=== PATIENT | male | born 1965 | race Caucasian/White ===

== ENCOUNTER 2023-12-13 14:05 | Outpatient (OUT) | payer OTHER, SELFPAY ==
--- NOTE | 2023-12-12 08:20 | VEINCLINIC_ITS ---
Vital Signs 12/13/23 14:24 Height 6 ft 3 in Weight 190.509 kg BMI 52.5 BP 144/90 H BP Location Right Brachial BP Position Sitting BP Cuff Size Adult BP Source Manual Cuff Respiration 20 Pulse 74 Pulse Source Monitor Pulse Oximetry (%) 99 Oxygen Delivery Method Room Air Comment The patient's blood pressure is elevated. Varicose Veins Patient in this day for comprehensive consult for bilateral painful varicose veins. Developed BLE edema 10 years ago with BLE wounds that develop spontaneous. Evaluated by Dr. Tucker in the past but no history of vein procedures. He had a DVT in the right leg about 10 years ago. 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 He has been wearing compression stockings for greater than 8 years. Patient was discharged from [facility] 2 weeks ago with cellulitis. Easton Self MD personally performed the services described in this documentation, as scribed by Gale Laws RN in my presence and it is both accurate and complete. Gale Self RN, am scribing for, and in the presence of, Dr. Easton Alvarez and in the presence of the patient. thigh: bilateral, knee: bilateral, calf: bilateral, ankle: bilateral and mackenzie: bilateral burning, sharp and tender 4 10 years Worsened in recent months: Yes walking and other (when wounds are present) analgesics, compression stockings and wraps Reports erythema, firmness, fatigue, heaviness, pruritus, limb pain, edema and leg edema History of lower extremity trauma: No Superficial thrombophlebitis: Yes Family history of varicose veins: yes Has patient had previous lower extremity venous surgery: No Patient has previously received the following treatment(s) for lower extremity varicose veins: Reports none Does patient have a history of : not applicable Does patient intend to have future pregnancies: not applicable Has patient had lower extremity venous scan with relux testing: Yes Support hose used: Yes Problems walking or doing physical activity: Yes How does it affect you: unable to walk or stand for long periods of time Do you walk much: Yes Do you stand much: Yes Review of Systems ROS Narrative Easton Self MD personally performed the services described in this documentation, as scribed by Gale Laws RN in my presence and it is both accurate and complete. Gale Self RN, am scribing for, and in the presence of, Dr. Easton Alvarez and in the presence of the patient. Status of ROS 10 or more systems reviewed and unremark able except as noted in history and below Cardiovascular Reports: edema and swelling of feet/ankles Musculoskeletal Reports: extremity pain, extremity swelling, joint pain, joint swelling and muscle weakness Integumentary/Breast Reports: rash, itching, redness, skin pain, skin tenderness, skin swelling, sores and non-healing lesion PFSH PFSH Medical History (Updated 12/13/23 @ 14:41 by Gale Laws, CEE) Pain due to varicose veins of both lower extremities ?I83.813 - Varicose veins of bilateral lower extremities with pain (ICD-10) Metal plate in skull ?Z96.7 - Presence of other bone and tendon implants (ICD-10) Hypercholesteremia ?E78.00 - Pure hypercholesterolemia, unspecified (ICD-10) Hypertension ?I10 - Essential (primary) hypertension (ICD-10) 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 - Other meniscus derangements, unspecified meniscus, unspecified knee (ICD-10) DVT (deep venous thrombosis) ?I82.409 - Acute embolism and thrombosis of unspecified deep veins of unspecified lower extremity (ICD-10) Venous insufficiency ?I87.2 - Venous insufficiency (chronic) (peripheral) (ICD-10) Cellulitis ?L03.90 - Cellulitis, unspecified (ICD-10) Diabetes ?E11.9 - Type 2 diabetes mellitus without complications (ICD-10) Surgical History (Updated 12/13/23 @ 14:41 by Gale Laws RN) H/O partial thyroidectomy ?E89.0 - Postprocedural hypothyroidism (ICD-10) History of meniscectomy of left knee ?Z98.890 - Other specified postprocedural states (ICD-10) Family History (Updated 12/13/23 @ 14:43 by Gale Laws RN) Father Family history of CHF (congestive heart failure) Family history of myocardial infarction Family history of hypertension Mother Pain due to varicose veins of both lower extremities Family history of diabetes mellitus Sister Family history of diabetes mellitus Grandfather Family history of cancer Social History (Updated 12/13/23 @ 14:44 by Gale Laws RN) Within the past year, how often did you have a drink containing alcohol: never Within the past year, how often did you have six or more drinks on one occasion: never Score interpretation: A score less than 4 is consistent with normal alcohol consumption. Smoking status: Never smoker Non-prescribed substance use: denies use Meds Home Medications and Allergies Home Medications ?Medication ?Instructions ?Recorded ?Confirmed ?Type acetaminophen 500 mg tablet 500 mg PO Q6H PRN pain 12/13/23 12/13/23 History (Tylenol Extra Strength) amlodipine 10 mg tablet 10 mg PO DAILY 12/13/23 12/13/23 History atorvastatin 80 mg tablet 80 mg PO DAILY 12/13/23 12/13/23 History canagliflozin 300 mg tablet 300 mg PO DAILY 12/13/23 12/13/23 History (Invokana) dapagliflozin propanediol 10 mg 10 mg PO DAILY 12/13/23 12/13/23 History tablet (Farxiga) glipizide 2.5 mg tablet, extended 2.5 mg PO DAILY 12/13/23 12/13/23 History release 24 hr (Glucotrol XL) glipizide 5 mg tablet 5 mg PO DAILY 12/13/23 12/13/23 History insulin detemir U-100 100 unit/mL 1 unit subcut DAILY 12/13/23 12/13/23 History (3 mL) subcutaneous pen (Levemir FlexPen) insulin lispro 100 unit/mL 1 sliding scale dose subcut 12/13/23 12/13/23 History subcutaneous pen (Humalog KwikPen USEASDIRECTD (U-100) Insulin) lisinopril 20 mg tablet 20 mg PO DAILY 12/13/23 12/13/23 History metformin 1,000 mg 24 hr 1,000 mg PO DAILY 12/13/23 12/13/23 History tablet,extended release (gastric reten.) (Glumetza) metoprolol tartrate 50 mg tablet 50 mg PO DAILY 12/13/23 12/13/23 History (Lopressor) omeprazole 40 mg capsule,delayed 40 mg PO DAILY 12/13/23 12/13/23 History release semaglutide 7 mg tablet (Rybelsus) 7 mg PO DAILY 12/13/23 12/13/23 History sennosides 8.6 mg tablet (Senna 8.6 mg PO DAILY 12/13/23 12/13/23 History Lax) sildenafil 25 mg tablet (Viagra) 25 mg PO DAILY PRN sexual activity 12/13/23 12/13/23 History sitagliptin phosphate 50 1 tab PO BID 12/13/23 12/13/23 History mg-metformin 1,000 mg tablet (Janumet) spironolactone 50 mg tablet 50 mg PO QAM 12/13/23 12/13/23 History (Aldactone) Allergies Allergy/AdvReac Type Severity Reaction Status Date / Time No Known Drug Allergies Allergy Unverified 12/13/23 14:18 Exam Narrative Exam Narrative: Easton Self MD personally performed the services described in this documentation, as scribed by Gale Laws RN in my presence and it is both accurate and complete. IGale RN, am scribing for, and in the presence of, Dr. Easton Alvarez and in the presence of the patient. Constitutional Documenting provider has reviewed patient's vital signs: yes Common normals: oriented x3 Nutritional appearance: overweight Lymph Lymphatic: no lymphedema noted Cardio Peripheral pulses: posterior tibial pulses present and dorsalis pedis pulses present Extremity General: calf tenderness, edema and other findings Right lower extremity: lower leg Right lower leg: inspection and palpation Left lower extremity: lower leg Left lower leg: inspection and palpation Other: left posterior distal wound approximately 1.3 x 2cm. Neuro Common normals: oriented x3 Assessment and Plan Assessment and Plan (1) Pain due to varicose veins of both lower extremities: Plan Explained vein anatomy and physiology to patient. Explained the development of varicose veins to patient.? Explained varicose vein treatments to patient, including laser ablation, microfoam chemical ablation (Varithena), injection sclerotherapy and microphlebectomy.? Explained potential risks and benefits of varicose vein treatments.? Patient verbalizes understanding and wants to pursue varicose vein treatment.? Dr. Alvarez examines patient and reviews results of bilateral leg reflux u/s.? Patient and Dr. Alvarez creates a plan of care.? Patient also agrees to purchase bilateral thigh high compression stockings and wear them as educated.? Patient also educated on exercise and rest elevation of bilateral legs. Plan is bilateral EVLT's and bilateral varithena. Prior authorization required. Will call patient to schedule. Easton Self MD personally performed the services described in this documentation, as scribed by Gale Laws RN in my presence and it is both accurate and complete. I, Gale Laws RN, am scribing for, and in the presence of, Dr. Easton Alvarez and in the presence of the patient.
--- NOTE | 2023-12-12 08:21 | W.VEIN ---
Discharge Plan Discharge Disposition: Home, Self-Care Outpatient Diagnostics: VC Endovenous Ablation 1VeinRT (Routine) Timeframe: 1 Month Facility: [facility] - Location: [facility] Center Ordered By: Easton Alvarez Follow Up Appointments: will call patient to schedule Plan of Treatment: prior authorization required. will call patient to schedule. Patient Instructions: Endovenous Ablation (GEN), Polidocanol (By injection) Print Language: [place]ian Discharge Date/Time: 12/13/23 15:56
--- NOTE | 2023-12-13 14:06 | VEIN_ITS ---
Patient Name: MARY DIAS MR#: [id number] : 1965 Exam Date: 12/13/2023 Ordering Doctor: DR CRIS VALADEZ M.D. RADIOLOGY REPORT PROCEDURE: [facility] EST [facility] - OFFICE VISIT INITIAL COMPARISON: None. PROGRESS NOTES: [age] year old male who presents with a 10 year history of lower extremity swelling, pain, dilated bulging veins, reoccurring wounds. The patient's right leg symptoms are worse than the left. There has been a progression of symptoms over time. This increases with prolonged leg dependency. The patient describes an improvement with rest and elevation. The patient denies any signs and symptoms to suggest arterial ischemia. The patient describes a family history varicose veins. The patient has drinking and smoking history of : None. Patient has a past medical history significant for hypertension, deep vein thrombosis, hypercholesterolemia, lower extremity pain from varicose veins, diabetes. The patient has a history of deep venous thrombus. See separate history and physical for medication list. No prior treatment for varicose or spider veins. Long-term use of compression stockings. After review of nurse notes, history and physical exam I discussed at length the pathophysiology of venous hypertension and possible treatments, therapies and strategies available. We discussed at length the importance of elevating the lower extremities above the level of the heart, increased physical activity and compression stocking use. Ultrasound venous reflux study performed today was discussed at length with the patient. The report demonstrates markedly dilated and incompetent right great saphenous vein. Moderately dilated incompetent right small saphenous and anterior accessory saphenous veins along with markedly dilated and incompetent sketch maker vein and multiple incompetent branch saphenous varicosities. Left leg demonstrates markedly dilated and incompetent great saphenous vein and small saphenous vein. Dilated incompetent sketch maker vein and multiple abnormal branch saphenous varicosities. PHYSICAL EXAM: The right leg demonstrates several varicosities, scattered spider veins, partially healed ulceration, marked edema, marked skin discoloration. The left leg demonstrates several varicosities, scattered spider veins, partially healed ulceration, marked edema, marked skin discoloration. Both thighs, legs and feet were symmetrically warm to the touch. Good posterior tibial and dorsalis pedis pulses were present bilaterally. VEIN/VC Facility EST Comprehensive IMPRESSION: 1. Bilateral lower extremity venous insufficiency 2. Bilateral lower extremity varicose veins 3. Bilateral lower extremity subcutaneous edema 4. No flow significant arterial disease 5. CEAP: C5, EC, AP, TX PLAN: 1. Continued use of compression stockings 2. Elevated legs and increased physical activity symptomatic relief 3. Endovenous laser ablation of right great saphenous, left great saphenous, right small saphenous, left small saphenous, right anterior accessory saphenous, right lower extremity sketch maker veins, and left lower leg sketch maker vein. 4. Bilateral lower extremity microfoam chemical ablation of incompetent branch saphenous varicosities. Nurse notes, history and physical were reviewed and confirmed, see attached forms. The nurse was present throughout the physical exam and consultation Dictated by: Cris Valadez M.D. on 12/13/2023 at 15:59 Approved by: Cris Valadez M.D. on 12/13/2023 at 16:08
--- NOTE | 2023-12-13 14:06 | VEIN_ITS ---
Patient Name: MARY DIAS MR#: [id number] : 1965 Exam Date: 12/13/2023 Ordering Doctor: DR CRIS VALADEZ M.D. RADIOLOGY REPORT PROCEDURE: VC EXT VENOUS REFLUX PAN LMTD COMPARISON: None. INDICATIONS: I83.813 Bilateral painful varicose veins TECHNIQUE: Duplex imaging of the lower extremity to assess the deep and superficial venous system for the presence of deep or superficial venous incompetence and to document the location and severity of disease. The study includes evaluation of the great saphenous vein (GSV), anterior accessory saphenous vein (AASV) and small saphenous vein (SSV). Patient scanned in reverse Trendelenburg and standing. 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 Compressibility: Partial compression of FV and popliteal vein. Flow: Moderate deep venous reflux. Preforator: Distal medial lower leg 7.6 mm, 0.9s reflux. Distal medial lower leg 5.9 mm with 0.7s reflux. Tech Note: Incompetent varicose vein proximal medial lower leg 7.4 mm with 0.5s reflux. Varicose vein mid medial thigh measures 5.9 mm with 1.5s reflux. Varicose vein proximal posterior calf measures 5.3 mm with 0.5s reflux. LEFT LOWER EXTREMITY: Saphenofemoral Junction Reflux: Yes 8.2 mm 3.3 sec GSV: Diam (mm) Reflux/Time (sec) Proximal Thigh 9.9 Yes 3.7 Mid Thigh 8.6 No Distal Thigh 7.3 No Prox Calf 6.9 Yes 0.6 Mid Calf 5.1 Yes 0.6 Saphenopopliteal Junction Relux: 6.9 mm Yes 1.0 SSV: Proximal Calf 6.7 Yes 2.5 Mid Calf 8.2 Yes 1.1 AASV: Proximal Thigh 7.6 No Mid Thigh 4.5 No Distal Thigh Thrombi: Chronic partial thrombus in popliteal vein. Compressibility: Partial thrombus in popliteal vein. Flow: Mild deep venous reflux. Rink Rat: Distal medial lower leg 3.5 mm with 2.8s reflux. Tech Note: Incompetent varicose vein proximal medial lower leg 7.6mm with 0.5s reflux. Incompetent varicose vein mid medial calf 4.3 mm with 0.8s reflux. Varicose vein mid anterior lower leg measures 3.3 mm with 0.5s reflux. CONCLUSION: 1. Abnormally dilated and incompetent bilateral great saphenous veins, bilateral small saphenous veins, and right anterior accessory saphenous vein. 2. Abnormally dilated incompetent public works supervisor veins bilaterally. 3. Multiple abnormally dilated incompetent branch saphenous varicosities bilaterally. Dictated by: Cris Valadez M.D. on 12/13/2023 at 15:38 Approved by: Cris Valadez M.D. on 12/13/2023 at 15:59
[2023-12-13 14:24] VITALS: BP 144/90; PULSE 74; O2SAT 99; BMI 52.5
== END 2023-12-13 15:56 | disposition home or self-care (01) ==
PROVIDERS: PCP Radiology Diagnostic Radiology; Visit Provider Radiology Diagnostic Radiology
DX: I83.813 Varicose veins of bilateral lower extremities with pain (principal)
CPT/HCPCS: 93970; G0463

== ENCOUNTER 2023-12-21 14:56 | Outpatient (OUT) | payer OTHER, SELFPAY ==
--- NOTE | 2023-12-20 07:32 | VEINCLINIC_ITS ---
Vital Signs 12/21/23 15:24 BP 126/60 BP Location Right Radial BP Position Supine BP Cuff Size Large Adult BP Source Manual Cuff Respiration 18 Pulse 88 Pulse Source Monitor Pulse Oximetry (%) 96 Oxygen Delivery Method Room Air Comment The patient's blood pressure is elevated. Varicose Veins Patient in this day for EVLT of right GSV Easton Self MD personally performed the services described in this documentation, as scribed by Vivek Hale RN in my presence and it is both accurate and complete. Vivek Self RN, am scribing for, and in the presence of, Dr. Easton Alvarez and in the presence of the patient. thigh: bilateral, knee: bilateral, calf: bilateral, ankle: bilateral and mackenzie: bilateral burning, sharp and tender 4 10 years Worsened in recent months: Yes walking and other (when wounds are present) analgesics, compression stockings and wraps Reports erythema, firmness, fatigue, heaviness, pruritus, limb pain, edema and leg edema History of lower extremity trauma: No Superficial thrombophlebitis: Yes Family history of varicose veins: yes Has patient had previous lower extremity venous surgery: No Patient has previously received the following treatment(s) for lower extremity varicose veins: Reports none Does patient have a history of : not applicable Does patient intend to have future pregnancies: not applicable Has patient had lower extremity venous scan with relux testing: Yes Support hose used: Yes Problems walking or doing physical activity: Yes How does it affect you: unable to walk or stand for long periods of time Do you walk much: Yes Do you stand much: Yes Review of Systems ROS Narrative Easton Self MD personally performed the services described in this documentation, as scribed by Vivek Hale RN in my presence and it is both accurate and complete. Vivek Self RN, am scribing for, and in the presence of, Dr. Easton Alvarez and in the presence of the patient. Status of ROS 10 or more systems reviewed and unremark able except as noted in history and below Cardiovascular Reports: edema and swelling of feet/ankles Musculoskeletal Reports: extremity pain, extremity swelling, joint pain, joint swelling and muscle weakness Integumentary/Breast Reports: rash, itching, redness, skin pain, skin tenderness, skin swelling, sores and non-healing lesion PFSH [facility] Medical History (Updated 12/13/23 @ 14:41 by Gale Laws, RN) Pain due to varicose veins of both lower extremities ?I83.813 - Varicose veins of bilateral lower extremities with pain (ICD-10) Metal plate in skull ?Z96.7 - Presence of other bone and tendon implants (ICD-10) Hypercholesteremia ?E78.00 - Pure hypercholesterolemia, unspecified (ICD-10) Hypertension ?I10 - Essential (primary) hypertension (ICD-10) 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 - Other meniscus derangements, unspecified meniscus, unspecified kne e (ICD-10) DVT (deep venous thrombosis) ?I82.409 - Acute embolism and thrombosis of unspecified deep veins of unspecified lower extremity (ICD-10) Venous insufficiency ?I87.2 - Venous insufficiency (chronic) (peripheral) (ICD-10) Cellulitis ?L03.90 - Cellulitis, unspecified (ICD-10) Diabetes ?E11.9 - Type 2 diabetes mellitus without complications (ICD-10) Surgical History (Updated 12/21/23 @ 15:33 by Vivek Hale) Status post laser ablation of incompetent vein ?Z98.890 - Other specified postprocedural states (ICD-10) H/O partial thyroidectomy ?E89.0 - Postprocedural hypothyroidism (ICD-10) History of meniscectomy of left knee ?Z98.890 - Other specified postprocedural states (ICD-10) Family History (Updated 12/13/23 @ 14:43 by Gale Laws, CEE) Father Family history of CHF (congestive heart failure) Family history of myocardial infarction Family history of hypertension Mother Pain due to varicose veins of both lower extremities Family history of diabetes mellitus Sister Family history of diabetes mellitus Grandfather Family history of cancer Social History (Updated 12/13/23 @ 14:44 by Gale Laws, CEE) Within the past year, how often did you have a drink containing alcohol: never Within the past year, how often did you have six or more drinks on one occasion: never Score interpretation: A score less than 4 is consistent with normal alcohol consumption. Smoking status: Never smoker Non-prescribed substance use: denies use Meds Home Medications and Allergies Home Medications ?Medication ?Instructions ?Recorded ?Confirmed ?Type acetaminophen 500 mg tablet 500 mg PO Q6H PRN pain 12/13/23 12/13/23 History (Tylenol Extra Strength) amlodipine 10 mg tablet 10 mg PO DAILY 12/13/23 12/13/23 History atorvastatin 80 mg tablet 80 mg PO DAILY 12/13/23 12/13/23 History canagliflozin 300 mg tablet 300 mg PO DAILY 12/13/23 12/13/23 History (Invokana) dapagliflozin propanediol 10 mg 10 mg PO DAILY 12/13/23 12/13/23 History tablet (Farxiga) glipizide 2.5 mg tablet, extended 2.5 mg PO DAILY 12/13/23 12/13/23 History release 24 hr (Glucotrol XL) glipizide 5 mg tablet 5 mg PO DAILY 12/13/23 12/13/23 History insulin detemir U-100 100 unit/mL 1 unit subcut DAILY 12/13/23 12/13/23 History (3 mL) subcutaneous pen (Levemir FlexPen) insulin lispro 100 unit/mL 1 sliding scale dose subcut 12/13/23 12/13/23 History subcutaneous pen (Humalog KwikPen USEASDIRECTD (U-100) Insulin) lisinopril 20 mg tablet 20 mg PO DAILY 12/13/23 12/13/23 History metformin 1,000 mg 24 hr 1,000 mg PO DAILY 12/13/23 12/13/23 History tablet,extended release (gastric reten.) (Glumetza) metoprolol tartrate 50 mg tablet 50 mg PO DAILY 12/13/23 12/13/23 History (Lopressor) omeprazole 40 mg capsule,delayed 40 mg PO DAILY 12/13/23 12/13/23 History release semaglutide 7 mg tablet (Rybelsus) 7 mg PO DAILY 12/13/23 12/13/23 History sennosides 8.6 mg tablet (Senna 8.6 mg PO DAILY 12/13/23 12/13/23 History Lax) sildenafil 25 mg tablet (Viagra) 25 mg PO DAILY PRN sexual activity 12/13/23 12/13/23 History sitagliptin phosphate 50 1 tab PO BID 12/13/23 12/13/23 History mg-metformin 1,000 mg tablet (Janumet) spironolactone 50 mg tablet 50 mg PO QAM 12/13/23 12/13/23 History (Aldactone) Allergies Allergy/AdvReac Type Severity Reaction Status Date / Time No Known Drug Allergies Allergy Unverified 12/13/23 14:18 Exam Narrative Exam Narrative: Easton Self MD personally performed the services described in this documentation, as scribed by Vivek Hale RN in my presence and it is both accurate and complete. IVivek RN, am scribing for, and in the presence of, Dr. Easton Alvarez and in the presence of the patient. Constitutional Documenting provider has reviewed patient's vital signs: yes Common normals: oriented x3 Nutritional appearance: overweight Lymph Lymphatic: no lymphedema noted Cardio Peripheral pulses: posterior tibial pulses present and dorsalis pedis pulses present Extremity General: calf tenderness, edema and other findings Right lower extremity: lower leg Right lower leg: inspection and palpation Left lower extremity: lower leg Left lower leg: inspection and palpation Other: left posterior distal wound approximately 1.3 x 2cm. Neuro Common normals: oriented x3 Assessment and Plan Assessment and Plan (1) Pain due to varicose veins of both lower extremities: Plan f/u evaluation with physician along with right leg limtied u/s Easton Self MD personally performed the services described in this documentation, as scribed by Vivek Hale RN in my presence and it is both accurate and complete. IVivek RN, am scribing for, and in the presence of, Dr. Easton Alvarez and in the presence of the patient. Procedures Procedure Instructions Procedures Plan of care: Risks and benefits of the procedure were discussed at length and informed written consent was obtained.? Time-out completed for verification of correct patient, procedure and site.? Staff present during time-out: Vivek Hale RN,? Easton Alvarez MD, Hailey Peters [facility], Time Out Time__1539 Patient prepped and procedure performed in usual sterile fashion. Risk of injury related to use of Diode laser and/or laser devices? __CR___ ? Serial number of laser used :? [id number] Control panel self test performed, electrical cords in good condition, floor is dry, basin of water available, fire extinguisher in close proximity_CR__ Polycarbonate goggles available and Laser warning signs outside of doors___CR__ Eye protection provided to patient and staff in room_CR___ Use of laser retardant drapes and dull blackened instruments as directed__CR___ Use of nonflammable prep solutions and use of saline soaked sponges to protect tissues as indicated _CR___ Length __75 cm Laser operated by _Dr. Alvarez Physician verbal confirmation laser locked in place__CR__ Laser start time (date and time) _12/20/2023@__1603 Laser stop time(date and time) _12/20/2023@_1612 Brice _8.0___ Average laser use __4497 Joules Average laser use___562 seconds Pulse continuous ___CR_? Pulse intermittent ___ Amount of Tumescent used __600cc____ Evaluated patient for signs and symptoms of electrical injury __CR___ ? Skin clear at insertion site __CR___ Patient tolerated procedure well.? Right leg Coban dressing applied to access site.? Applied right thigh high leg compression stocking. Will return on 12/27/2023 for right leg limited venous ultrasound and exam. IEaston MD personally performed the services described in this documentation, as scribed by Vivek Hale RN in my presence and it is both accurate and complete. I, Vivek Hale RN, am scribing for, and in the presence of, Dr. Easton Alvarez and in the presence of the patient.
--- NOTE | 2023-12-20 07:34 | P.DS_ITS ---
Discharge Plan Discharge Disposition: Home, Self-Care Outpatient Diagnostics: VC Facility EST LMTD (Routine) Timeframe: 2 Weeks Facility: [facility] - Location: Vein Center Ordered By: Easton Alvarez VC EXT Venous RT LMTD (Routine) Timeframe: 2 Weeks Facility: [facility] - Location: Vein Center Ordered By: Easton Alvarez Follow Up Appointments: 12/27/2023 Plan of Treatment: f/u evaluation with physician along with right leg limited u/s Patient Instructions: Endovenous Ablation (DC) Print Language: Korean Discharge Date/Time: 12/21/23 15:35
[2023-12-21] MEDS: 0.9 % SODIUM CHLORIDE 500 ML, LIDOCAINE HCL 20 ML, SODIUM BICARBONATE 10 MEQ INJ (15:02)
[2023-12-21] MEDS: LIDOCAINE HCL 1% 100 MG/10 ML MDV INJ (15:02)
--- NOTE | 2023-12-21 15:07 | VEIN_ITS ---
[address] [address] Patient Name: MARY DIAS MRN: [id number] date: 1965 Sex: M Assigned Patient Location: Current Patient Location: Accession/Order Number: [id number] Exam Date: 12/21/2023 15:10 Report Date: 12/22/2023 06:54 At the request of: CRIS VALADEZ Procedure: VC Endovenous Ablation 1VeinRT EXAMINATION: VC Endovenous Ablation 1VeinRT HISTORY: I83.813 - Varicose veins of bilateral lower extremities w... The risks and benefits of the procedure had been previously discussed, and were rediscussed at length. Informed written consent was obtained. Vivek Hale RN and Hailey Haywood RDMS assisted. Time out procedure was performed. The right lower extremity was prepared and draped in the usual sterile fashion to allow knee flexion in the sterile field. Duplex ultrasound probe was draped in a sterile cover, sterile transmission gel was used. Venous mapping was performed with the areas of dilation and large tributaries marked. The total length was 75 cm from the entry 3 cm above the ankle to 3 cm below the Saphenofemoral junction. The diameter of the right great saphenous vein ranged from 12.9 mm. A 30 gauge needle and 1% buffered lidocaine was used to anesthetize the entry site. A 4 mm incision was made with a scalpel and the saphenous vein was entered percutaneously under direct ultrasound guidance with a micropuncture set, a single stick was successful in gaining access. A micro-guide wire was inserted and the needle removed. A micro-set including a dilator was inserted over the microwire and the needle and dilator were removed. A guide wire was inserted through the micro-set and guided through the saphenous vein to the saphenofemoral junction. The dilator was removed and an introducer sheath was inserted over the wire until the end of the sheath entered the saphenofemoral junction. The dilator and wire were removed and the 600 micron fiber was introduced and placed and positioned so that it extended beyond the sheath and was 3 cm distal to the saphenofemoral or saphenopopliteal junction. Final position of the fiber was determined by ultrasound guidance and duplex imaging. Tumescent anesthetic was delivered by ultrasound guidance. 600 cc of fluid was delivered along the entire course of the saphenous vein. The solution consisted of 1000 cc of normal saline with 40 mL of 1% lidocaine and 20 mL of sodium bicarbonate. A final positioning check was made. The energy source was turned on by means of the foot pedal and the fiber and sheath were withdrawn. The total number of Joules delivered was 4497. The laser was active for 562 seconds under continuous pulse, average laser use of 8 J. Laser start time: 4:03 PM Laser stop time: 4:12 PM Date: 12/22/2023. A duplex ultrasound revealed compressibility and flow at the saphenofemoral junction immediately after the procedure. Hemostasis at the access site was achieved. The skin incision of the saphenous vein was closed with a 4 x 4. A compression stocking was applied. Postop instructions were given. A follow up appointment was recommended and scheduled. The patient tolerated the procedure well. Electronically authenticated by: CRIS VALADEZ Date: 12/22/2023 06:54
[2023-12-21 15:24] VITALS: BP 126/60; PULSE 88; O2SAT 96
== END 2023-12-21 15:35 | disposition home or self-care (01) ==
LOC: VC 14:57
PROVIDERS: PCP Radiology Diagnostic Radiology; Visit Provider Radiology Diagnostic Radiology
DX: I83.813 Varicose veins of bilateral lower extremities with pain (principal)
CPT/HCPCS: 36478

== ENCOUNTER 2023-12-27 15:01 | Outpatient (OUT) | payer OTHER, SELFPAY ==
--- NOTE | 2023-12-27 09:49 | VEINCLINIC_ITS ---
Vital Signs 12/27/23 15:50 Height 6 ft 3 in Weight 190.5 kg BMI 52.5 Varicose Veins Patient in today for follow up ultrasound of right lower extremity following EVLT of right GSV completed on 12/21/23. Oj Self MD personally performed the services described in this documentation, as scribed by Hailey Peters RDMS in my presence and it is both accurate and complete. Hailey Self RDMS, am scribing for, and in the presence of, Dr. Oj Metzger and in the presence of the patient. thigh: bilateral, knee: bilateral, calf: bilateral, ankle: bilateral and mackenzie: bilateral burning, sharp and tender 4 10 years Worsened in recent months: Yes walking and other (when wounds are present) analgesics, compression stockings and wraps Reports erythema, firmness, fatigue, heaviness, pruritus, limb pain, edema and leg edema History of lower extremity trauma: No Superficial thrombophlebitis: Yes Family history of varicose veins: yes Has patient had previous lower extremity venous surgery: No Patient has previously received the following treatment(s) for lower extremity varicose veins: Reports none Does patient have a history of : not applicable Does patient intend to have future pregnancies: not applicable Has patient had lower extremity venous scan with relux testing: Yes Support hose used: Yes Problems walking or doing physical activity: Yes How does it affect you: unable to walk or stand for long periods of time Do you walk much: Yes Do you stand much: Yes Review of Systems ROS Narrative Oj Self MD personally performed the services described in this documentation, as scribed by Hailey Peters RDMS in my presence and it is both accurate and complete. Hialey Self RDMS, am scribing for, and in the presence of, Dr. Oj Metzger and in the presence of the patient. Status of ROS 10 or more systems reviewed and unremark able except as noted in history and below Cardiovascular Reports: edema and swelling of feet/ankles Musculoskeletal Reports: extremity pain, extremity swelling, joint pain, joint swelling and muscle weakness Integumentary/Breast Reports: rash, itching, redness, skin pain, skin tenderness, skin swelling, sores and non-healing lesion PFSH PFSH Medical History (Updated 12/27/23 @ 09:50 by Hailey Peters) Phlebitis and thrombophlebitis of superficial vessels of right lower extremity ?I80.01 - Phlebitis and thrombophlebitis of superficial vessels of right lowe r extremity (ICD-10) Pain due to varicose veins of both lower extremities ?I83.813 - Varicose veins of bilateral lower extremities with pain (ICD-10) Metal plate in skull ?Z96.7 - Presence of other bone and tendon implants (ICD-10) Hypercholesteremia ?E78.00 - Pure hypercholesterolemia, unspecified (ICD-10) Hypertension ?I10 - Essential (primary) hypertension (ICD-10) 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 - Other meniscus derangements, unspecified meniscus, unspecified knee (ICD-10) DVT (deep venous thrombosis) ?I82.409 - Acute embolism and thrombosis of unspecified deep veins of unspecified lower extremity (ICD-10) Venous insufficiency ?I87.2 - Venous insufficiency (chronic) (peripheral) (ICD-10) Cellulitis ?L03.90 - Cellulitis, unspecified (ICD-10) Diabetes ?E11.9 - Type 2 diabetes mellitus without complications (ICD-10) Surgical History (Updated 12/21/23 @ 15:33 by Vivek Hale) Status post laser ablation of incompetent vein ?Z98.890 - Other specified postprocedural states (ICD-10) H/O partial thyroidectomy ?E89.0 - Postprocedural hypothyroidism (ICD-10) History of meniscectomy of left knee ?Z98.890 - Other specified postprocedural states (ICD-10) Family History (Updated 12/13/23 @ 14:43 by Gale Laws RN) Father Family history of CHF (congestive heart failure) Family history of myocardial infarction Family history of hypertension Mother Pain due to varicose veins of both lower extremities Family history of diabetes mellitus Sister Family history of diabetes mellitus Grandfather Family history of cancer Social History (Updated 12/13/23 @ 14:44 by Gale Laws RN) Within the past year, how often did you have a drink containing alcohol: never Within the past year, how often did you have six or more drinks on one occasion: never Score interpretation: A score less than 4 is consistent with normal alcohol consumption. Smoking status: Never smoker Non-prescribed substance use: denies use Meds Home Medications and Allergies Home Medications ?Medication ?Instructions ?Recorded ?Confirmed ?Type acetaminophen 500 mg tablet 500 mg PO Q6H PRN pain 12/13/23 12/13/23 History (Tylenol Extra Strength) amlodipine 10 mg tablet 10 mg PO DAILY 12/13/23 12/13/23 History atorvastatin 80 mg tablet 80 mg PO DAILY 12/13/23 12/13/23 History canagliflozin 300 mg tablet 300 mg PO DAILY 12/13/23 12/13/23 History (Invokana) dapagliflozin propanediol 10 mg 10 mg PO DAILY 12/13/23 12/13/23 History tablet (Farxiga) glipizide 2.5 mg tablet, extended 2.5 mg PO DAILY 12/13/23 12/13/23 History release 24 hr (Glucotrol XL) glipizide 5 mg tablet 5 mg PO DAILY 12/13/23 12/13/23 History insulin detemir U-100 100 unit/mL 1 unit subcut DAILY 12/13/23 12/13/23 History (3 mL) subcutaneous pen (Levemir FlexPen) insulin lispro 100 unit/mL 1 sliding scale dose subcut 12/13/23 12/13/23 History subcutaneous pen (Humalog KwikPen USEASDIRECTD (U-100) Insulin) lisinopril 20 mg tablet 20 mg PO DAILY 12/13/23 12/13/23 History metformin 1,000 mg 24 hr 1,000 mg PO DAILY 12/13/23 12/13/23 History tablet,extended release (gastric reten.) (Glumetza) metoprolol tartrate 50 mg tablet 50 mg PO DAILY 12/13/23 12/13/23 History (Lopressor) omeprazole 40 mg capsule,delayed 40 mg PO DAILY 12/13/23 12/13/23 History release semaglutide 7 mg tablet (Rybelsus) 7 mg PO DAILY 12/13/23 12/13/23 History sennosides 8.6 mg tablet (Senna 8.6 mg PO DAILY 12/13/23 12/13/23 History Lax) sildenafil 25 mg tablet (Viagra) 25 mg PO DAILY PRN sexual activity 12/13/23 12/13/23 History sitagliptin phosphate 50 1 tab PO BID 12/13/23 12/13/23 History mg-metformin 1,000 mg tablet (Janumet) spironolactone 50 mg tablet 50 mg PO QAM 12/13/23 12/13/23 History (Aldactone) Allergies Allergy/AdvReac Type Severity Reaction Status Date / Time No Known Drug Allergies Allergy Unverified 12/13/23 14:18 Exam Narrative Exam Narrative: Oj Self MD personally performed the services described in this documentation, as scribed by Hailey Peters RDMS in my presence and it is both accurate and complete. Hailey Self RDMS am scribing for, and in the presence of, Dr. Oj Metzger and in the presence of the patient. Constitutional Documenting provider has reviewed patient's vital signs: yes Common normals: oriented x3 Nutritional appearance: overweight Lymph Lymphatic: no lymphedema noted Cardio Peripheral pulses: posterior tibial pulses present and dorsalis pedis pulses present Extremity General: calf tenderness, edema and other findings Right lower extremity: lower leg Right lower leg: inspection and palpation Left lower extremity: lower leg Left lower leg: inspection and palpation Other: left posterior distal wound approximately 1.3 x 2cm. Neuro Common normals: oriented x3 Results Imaging Venous US: Radiologist's impression: Heat induced thrombus in right GSV 1.7 cm from SFJ and extends to distal lower leg. Oj Self MD personally performed the services described in this documentation, as scribed by Hailey Peters RDMS in my presence and it is both accurate and complete. Hailey Self RDMS am scribing for, and in the presence of, Dr. Oj Metzger and in the presence of the patient. Assessment and Plan Assessment and Plan (1) Phlebitis and thrombophlebitis of superficial vessels of right lower extremity: Plan Plan is for patient to return for EVLT of left GSV on 01/18/24. Oj Self MD personally performed the services described in this documentation, as scribed by Hailey Peters RDMS in my presence and it is both accurate and complete. Hailey Self RDMS am scribing for, and in the presence of, Dr. Oj Metzger and in the presence of the patient.
--- NOTE | 2023-12-27 15:03 | VEIN_ITS ---
Patient Name: AMRY DIAS MR#: [id number] : 1965 Exam Date: 12/27/2023 Ordering Doctor: DR CRIS VALADEZ M.D. RADIOLOGY REPORT PROCEDURE: VC FACILITY EST LMTD VEIN CENTER - OFFICE VISIT FOLLOW UP COMPARISON: None. PROGRESS NOTES: The patient reports improvement in leg symptoms. The patient had no significant pain following intravenous laser ablation of the right great saphenous vein. The patient did wear his compression wrap. The patient did not require oral analgesics Physical exam demonstrates the incision to be sealed. No erythema or warmth. Single area of bruising measuring 2 cm medial right mid thigh. The right great saphenous vein cannot be palpated likely related base from body habitus. No ulceration Review of the ultrasound performed the same day demonstrates occlusive thrombus extending throughout the treated left great saphenous vein. Heat induced thrombus is 1.7 cm from the saphenofemoral junction. No deep vein thrombus. The patient expressed a desire to proceed with treatment of incompetent left great saphenous vein. VEIN/ Facility EST LMTD IMPRESSION: 1. Successful ablation of the right great saphenous vein. 2. Persistent incompetent left great saphenous vein. PLAN: Intravenous laser ablation left great saphenous vein Nurse notes, history and physical were reviewed and confirmed, see attached forms. The nurse was present throughout the physical exam and consultation Dictated by: Oj Metzger MD on 12/27/2023 at 15:34 Approved by: Oj Metzger MD on 12/27/2023 at 15:35
--- NOTE | 2023-12-27 15:03 | VEIN_ITS ---
Patient Name: MARY DIAS MR#: [id number] : 1965 Exam Date: 12/27/2023 Ordering Doctor: DR CRIS VALADEZ M.D. RADIOLOGY REPORT PROCEDURE: VC EXT VENOUS RT LMTD COMPARISON: None. INDICATIONS: I80.01 - Phlebitis and thrombophlebitis of superficial veins right leg TECHNIQUE: Lower extremity martinez scale and Duplex Doppler evaluation of the deep venous system from the inguinal ligament through the calf veins. FINDINGS: REGION: Right lower extremity. THROMBI: Positive for DVT. 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 Heat induced thrombus in right GSV 1.7 cm from SFJ and extends to distal lower leg. COMPRESSIBILITY: Non-compressible segments corresponding to thrombus FLOW: Areas of no flow corresponding to thrombus CONCLUSION: Post ablation occlusion of the right great saphenous vein with heat induced thrombus 1.7 cm from the saphenofemoral junction Dictated by: Oj Metzger MD on 12/27/2023 at 15:27 Approved by: Oj Metzger MD on 12/27/2023 at 15:28
[2023-12-27 15:50] VITALS: BMI 52.5
--- NOTE | 2023-12-27 15:53 | W.VEIN ---
Discharge Plan Discharge Disposition: Home, Self-Care Outpatient Diagnostics: VC Endovenous Ablation 1VeinLT (Routine) Timeframe: 1 Month Facility: [facility] - Location[facility] Ordered By: Oj Metzger Follow Up Appointments: 01/18/24 Plan of Treatment: EVLT of left GSV EVLT Tumescent Anesthesia: 500 mL 0.9% NS with 20 mL 1% Lidocaine and 10 mL 8.4% NAHCO3 Buffered Local Anesthesia: 10 mL of 1% Lidocaine Buffered Print Language: Greenlandic Discharge Date/Time: 12/27/23 15:54
== END 2023-12-27 15:54 | disposition home or self-care (01) ==
PROVIDERS: PCP Radiology Diagnostic Radiology; Visit Provider Radiology Diagnostic Radiology
DX: I80.01 Phlebitis and thrombophlebitis of superficial vessels of right lower extremity (principal)
CPT/HCPCS: 93971; G0463